=== PATIENT | female | born 1980 | race Two or more races ===

== ENCOUNTER 2025-07-01 19:13 | Emergency (ER) | payer OTHER ==
[2025-07-01 21:55] LABS: #Basophils 0.03 10x3/uL (0.0-0.2); #Eosinophils 0.18 10x3/uL (0.0-0.5); #Monocytes 0.68 10x3/uL (0.0-1.1); #Neutrophils 3.01 10x3/uL (1.5-8.4); %Basophils 0.5 % (0.0-2.0); %Eosinophils 2.7 % (0.0-6.0); %Lymphocytes 40.5 % (18.0-47.0); %Monocytes 10.4 % (0.0-10.0); %Neutrophils 45.7 % (40.0-75.0)
[2025-07-01 21:57] LABS: ALT (SGPT) 21 U/L (Less than 34); AST (SGOT) 20 U/L (11-34); Albumin 3.6 g/dL (3.1-4.5); Alkaline Phosphatase 102 U/L (40-110); Anion Gap 12 mmol/L (10-20); BUN (Urea Nitrogen) 13 mg/dL (7.0-18.7); Bilirubin, Total 0.2 mg/dL (0.3-1.2); Calc. Creatinine Clearance 0 mL/min (70-130); Calcium 8.7 mg/dL (7.8-10.44); Carbon Dioxide 22 mmol/L (22-29); Chloride 110 mmol/L (98-107); Globulin 2.6 g/dL (2.4-3.5); Glucose 99 mg/dL (70-105); Potassium 4.0 mmol/L (3.5-5.1); Sodium 140 mmol/L (136-145)
[2025-07-01 21:59] LABS: Hematocrit 24.3 % (34.9-44.5); Hemoglobin 6.9 g/dL (12.0-15.5); Mean Corpuscular Hemoglobin 16.9 pg (27.0-33.0); Platelet Count 295 10x3/uL (150-450); Red Blood Cell (RBC) Count 4.08 10x6/uL (3.90-5.03); White Blood Cell (WBC) Count 6.57 10x3/uL (3.5-10.5)
[2025-07-01] MEDS ORDERED: Famotidine 20 MG TAB ONE ×2 (22:01)
[2025-07-01 22:03] LABS: Troponin I Less than 0.010 ng/mL (< 0.028)
[2025-07-01 23:13] LABS: Troponin I Less than 0.010 ng/mL (< 0.028)
[2025-07-02 00:32] LABS: MDiff Complete? YES; Microcytosis SLIGHT = 6-15 cells (100X) (0-5/hpf); Ovalocytes SLIGHT = 2-5 cells (100X) (0-1/hpf); Platelet Adequacy Comment Appears Adequate
[2025-07-02 06:56] LABS: Mean Corpuscular Volume 59.6 fL (81.6-98.3)
== END 2025-07-02 01:04 | disposition home or self-care (01) ==
LOC: CSHERS 19:13
DX: R07.89 Other chest pain (principal); D64.9 Anemia, unspecified; Z87.42 Personal history of other diseases of the female genital tract
CPT/HCPCS: 36415; 71045; 80053; 83880; 84484; 85025; 85060; 93005